=== PATIENT | male | born 1965 | race Caucasian/White ===

== ENCOUNTER → 2017-10-01 | Outpatient (CLI) | payer BC, OTHER ==
[~2017-10-01] MED LIST: NORCO 5-325 TA1 EACH PO
== END ==
LOC: RAD 10:14
DX: R07.9 Chest pain, unspecified (principal); M47.894 Other spondylosis, thoracic region

== ENCOUNTER → 2017-10-08 | Outpatient (CLI) | payer BC, OTHER | LOC: RAD 07:30 | DX: R22.2 Localized swelling, mass and lump, trunk (principal) ==